=== PATIENT | male | born 1980 | race Caucasian/White ===

== ENCOUNTER → 2023-02-17 10:28 | Outpatient (BNVA) | payer SELFPAY | PROVIDERS: Family Provider Family Medicine; PCP Family Medicine; Visit Provider Family Medicine | DX: I82.401 Acute embolism and thrombosis of unspecified deep veins of right lower extremity (principal) | CPT/HCPCS: 81241; 85210; 85246 ==

== ENCOUNTER 2023-08-10 12:00 | Outpatient (CLI) | payer SELFPAY | END 2023-08-10 12:01 | disposition home or self-care (01) | LOC: SLEEP 08-11 11:34 | PROVIDERS: PCP Family Medicine; Visit Provider Family Medicine | DX: G47.33 Obstructive sleep apnea (adult) (pediatric) (principal) | CPT/HCPCS: G0399 ==

== ENCOUNTER 2025-06-25 22:29 | Emergency (ER) | payer SELFPAY ==
--- OUTSIDE RECORDS SUMMARY | 2025-06-25 22:33 | XMS_ITS | Data Portability ---
Author Organization MARYURI Richie Mckeon [facility], [facility], [facility] Address [address] [place] [address] Assessment No assessment recorded. Plan of Treatment Reminders Order Date Submit Date Provider Last Modified By Organization Details Last Modified Time Details Appointments None recorded. Lab None recorded. Referral None recorded. Procedures None recorded. Surgeries None recorded. Imaging CT, chest, w/ contrast 2024 025 [facility] [address], [address], 12:45:26 Medication Orders atorvastati n 10 mg tablet 2024 025 [place] [id number], [address], [place], [place], [id number], 15:06:24 atorvastati n 20 mg tablet 2023 025 [place] [id number], [address], [place], [place], [id number], 14:16:27 itraconazol e 100 mg capsule 2023 025 [place] [facility] #[id number], [address], [place], [place], [id number], 14:18:25 Patient TargetsNo targets recorded. Patient InstructionsNo instructions recorded. Reason for Referral None Reported. Results Created Date Observation Date Name Description Value Unit Range Abnormal Flag Note LastModifiedBy Organization Detail LastModifiedTime 03/23/20 25 03/23/2025 US, doppl er, venou s No observ ation record ed. [email or web address] Not Available 03/25 09:04:30 03/26/20 25 03/23/2025 US, doppl er, venou s No observ ation record ed. [email or web address] Not Available 03/26 09:35:35 04/06/20 25 05/04/2024 CT, chest , w/wo contr ast No observ ation record ed. [email or web address] [facility] [address] [place], [address], 04/06/2025 16:18:24 05/23/20 25 05/22/2025 US, duple x, venou s, lower extre mity No observ ation record ed. [facility] [address] [place], [address], 05/28/2025 09:52:07 Result Notes None recorded. Problems Name Problem SNOMED Code Status Onset Date Resolution Date Notes Provider Name and Address Organization Details Recorded Time Celluliti s of digit 92887411 Active 2015 ONYCHIA AND PARONYCHI A; Recorded 6 7:33AM by Katie Everett LPN, Office Visit; Promoted; acuity set as *; Not Available [facility] 3 03:08:10 Mixed hyperlipi demia 616915838 Active 2015 MIXED HYPERLIPI DEMIA; Recorded 6 7:33AM by Katie Everett LPN, Office Visit; Promoted; acuity set as *; Eligio Washington MD [address] [place], [address] , [facility] 5 15:05:21 Dysthymia 99634763 Active 2015 MALAISE AND FATIGUE; Recorded 6 7:33AM by Katie Everett LPN, Office Visit; Promoted; acuity set as *; Not Available [facility] 3 03:08:11 Generaliz ed anxiety disorder 43556594 Active 2023 Eligio Washington MD [address] [place] [address], [phone] , [facility] 4 15:45:16 Elevated blood-pre ssure reading without diagnosis of hypertens ion 356818591 Active 2023 Eligio Washington MD [address] [place] [address], [phone] , [facility] 4 15:45:48 Onychomyc osis of toenails 676250428 Active 2023 Eligio Washington MD [address] [place] [address], [phone] , [facility] 4 15:56:24 Muscle spasm of cervical muscle of neck 99664774863 4 Active 2024 Eligio Washington MD [address] [place] [address], [phone] , [facility] 5 14:51:05 Recurrent deep vein thrombosi s 780018169 Active 2024 Eligio Washington MD [address] [place] [address], [phone] , [facility] 5 14:52:33 Problem Notes None recorded. Procedures Surgical History Date Name Laterality Status Provider Name and Address Organization Details Recorded Time 08/16/19 20 Cholecystectomy completed SARKIS GUTIERRES [facility] 06/13/2024 15:05:03 Imaging Results None recorded. Procedure Notes None recorded. Medical Equipment None Reported. Allergies No known drug allergies Medications Name Sig Start Date Stop Date Status Note LastModified by Organization Details LastModified Time atorvastati n 20 mg tablet Take 1 tablet every day by oral route for 90 days. 03/27 completed Not Available Not Available Not Available ketoconazol e 2 % shampoo active Not Available Not Available Not Available atorvastati n 10 mg tablet TAKE 1 TABLET BY MOUTH EVERY DAY active Not Available Not Available No t Available fluconazole 150 mg tablet TAKE 1 TABLET BY MOUTH 1 TIME FOR 1 DAY 06/13 completed Not Available Not Available Not Available hydroxyzine HCl 25 mg tablet Take 1 tablet 3 times a day by oral route as needed for 30 days. 2024 active Not Available Not Available Not Avai lable itraconazol e 100 mg capsule TAKE 2 CAPSULES BY MOUTH DAILY FOR 84 DAYS 03/27 completed Not Available Not Available Not Available Tums 200 mg (as calcium carbonate 500 mg) chewable tablet Take 1 tablet as needed by oral route. active Not Available Not Available No t Available Eliquis 5 mg tablet Take 1 tablet twice a day by oral route for 90 days. 2024 active Not Available Not Available Not Avai lable Eliquis 10mg BID active Not Available Not Marla ilable Not Available aspirin 81 mg capsule Take 1 capsule every day by oral route. 03/27 completed Not Available Not Available Not Available Vitals Date Recorded Body height Body mass index (BMI) Body weight Heart rate Systolic And Diastolic Provider Name and Address Organization Details Last Updated DateTime 03/27/2025 187.96 cm 29.5 kg/m2 734403.2 5 g 72 /min 130/100 mm[Hg] SARKIS GUTIERRES [facility] 14:15:03 Date Recorded Body height Body mass index (BMI) Body weight Heart rate Systolic And Diastolic Provider Name and Address Organization Details Last Updated DateTime 06/13/2024 187.96 cm 29.5 kg/m2 846455.2 5 g 72 /min 140/99 mm[Hg] SARKIS GUTIERRES [facility] 15:02:41 Social History Question Answer Notes LastModified by Organizat ion Details LastModified Time Tobacco Smoking Status Never Smoker [facility] 06/13/2024 15:04:50 What Was The Date Of Your Most Recent Tobacco Screening? 03/27/2025 Information not available 03/27/2025 Sex: Unknown Functional Status Question Answer Note LastModified by Organizat ion Details LastModified Time What is your level of alcohol consumption? Occasional Information not available 06/13/2024 Mental Status None recorded. Family History Relationship Description Onset Age of this Age Resolved Age Notes LastModified by Organization Details LastModified Time Mother Coronary arterioscler osis [email or web address] Not available 06/13 14:55:42 Notes:In stable health: Moth er, Father Stomach Cancer; Maternal Grandfather, Diabetes ; Mother, Hypertension, Stroke; Maternal Grandfather, Aneurysm; Maternal Grandfather Medical History No medical history recorded. Past Encounters Encounter ID Performer Location Encounter Start Date Encounter Closed Date Diagnosis/Indication Diagnosis SNOMED-CT Code Diagnosis ICD10 Code Diagnosis IMO Codes Diagnosis Note [id number] Eligio Washington MD [facility]) [address] [place] [phone] 06/13/2024 14:46:20 06/14/2024 16:55:13 Mixed hyperlipidemia 424482562 E78.2 Generalize d anxiety disorder 99424533 F41.1 History of deep vein thrombosis 712233263 Z86.718 Elevated blood-pressure reading without diagnosis of hypertension 474473252 R03.0 Onychomyco sis of toenails 140905625 B35.1 [id number] Eligio Washington MD [facility]) [address] [place] [phone] 03/27/2025 13:56:02 03/27/2025 15:36:17 Muscle spasm of cervical muscle of neck 0248029770 04 M62.584 7099970 Recurrent deep vein thrombosis 286125407 I82.409 19616017 The last one was superficia l. Will be continuing Eliquis until further notice. History of respiratory disease 287769597 Z87.898 865503 Mixed hyperlipidemia 267 951622 E78.2 00104 [id number] Eligio Washington MD [facility]) [address] [place] [phone] 05/22/2025 13:09:36 05/23/2025 11:29:19 Health Concerns Section Related Observation LastModified by Organization Detai ls LastModified Time None Recorded Concern Status LastModified by Organization Details LastModified Time None Recorded Advance Directives Directive None Recorded Payers Insurance Date Sequence Insurance Name Policy Number Policy Guzmán Covered Member ID Guzmán Member ID Guarantor Name 06/13/2024 1 *SELF PAY* Kristina Elise Notes Date Note Type Note Provider Name and Address Organization Details Recorded Time 06/13/2024 text/html He had a DVT in February, after a long drive. Testing for underlying coagulopathy was negative. Eligio Washington MD [address] [place] [address], [phone], [facility] 06/13/2024 16:02:02
[2025-06-25 22:36] VITALS: BP 142/100; PULSE 64; RESP 16; TEMP 36.7; O2SAT 98; BMI 29.5
--- NOTE | 2025-06-25 22:43 | CTR_ITS ---
PROCEDURE INFORMATION: Exam: CT Head Without Contrast Exam date and time: 06/25/2025 10:47 PM Age: 44 years old Clinical indication: Pain; Headache; Additional info: Headache, wants scan TECHNIQUE: Imaging protocol: Computed tomography of the head without contrast. Radiation optimization: All CT scans at this facility use at least one of these dose optimization techniques: automated exposure control; mA and/or kV adjustment per patient size (includes targeted exams where dose is matched to clinical indication); or iterative reconstruction. COMPARISON: No relevant prior studies available. RADIATION DOSE METRICS: Total DLP (mGy-cm): 1134.78 FINDINGS: Brain: No acute intracranial hemorrhage. No midline shift or mass effect. No acute territorial infarct. Global age-related cerebral atrophy. 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 Cerebral ventricles: No ventriculomegaly. Paranasal sinuses: Visualized sinuses are unremarkable. No fluid levels. Mastoid air cells: Visualized mastoid air cells are well aerated. Bones: Unremarkable. No acute fracture. Soft tissues: Unremarkable. CT/CT head wo con* [id number] IMPRESSION: No acute intracranial hemorrhage. No midline shift or mass effect.
--- NOTE | 2025-06-25 23:08 | ED_ITS ---
HPI - Headache General: Chief Complaint: Headache Stated Complaint: Dull headache, back and neck pain Time Seen by Provider: 06/25/25 22:32 Source: patient Mode of arrival: ambulatory Limitations: no limitations History of Present Illness: Patient is a 44-year-old male with history of DVT presenting to the emergency department complaining of a headache for the past few days. Started gradually, he states he was concerned as he was having some posterior neck pain as well but he states that he thought this was just a tension headache as he has been driving back and forth from here in [place]. He notes that tonight you lay down for bed and he felt a whooshing from his head down through his neck which completely resolved his headache. He reports that he is just here to get a CT scan to make sure that he does not have any intracranial bleed due to his history of blood clots. He has no other symptoms to report, asymptomatic at this time. No visual changes, unilateral numbness or weakness, facial droop, difficulty walking, or other symptoms at this time. MD elicited complaint: headache Onset (ago): day(s) Onset description: gradually Severity: mild Quality & Timing: other (resolved) Associated symptoms: Deny chest pain, fever(s), lightheadedness, nausea, rash or vomiting Related Data Previous Rx's ?Medication ?Instructions ?Recorded aspirin 81 mg tablet,delayed 81 mg PO DAILY #30 tabs 1 09/26/22 release (Adult Aspirin Regimen) c-pap 6-16 #1 ea 09/22/23 Allergies Allergy/AdvReac Type Severity Reaction Status Date / Time No Known Allergies Allergy Verified 06/25/25 22:40 Review of Systems General: Reports: 10 or more systems reviewed and unremarkable except in HPI and below Const: Denies: fever(s), chills or fatigue Eyes: Denies: change in vision ENMT: Denies: throat pain, ear or mastoid pain or nasal discharge Card: Denies: chest pain, palpitations, swelling of feet/ankles or lightheadedness Resp: Denies: dyspnea, productive cough or wheezing GI: Denies: abdominal pain, nausea, vomiting, diarrhea or constipation : Denies: flank pain, difficulty urinating, dysuria or urinary frequency Musc: Reports: neck pain; Denies: back pain or joint pain Skin/Breast: Denies: rash Neuro: Reports: headache(s); Denies: numbness in extremities, weakness in extremities, lack of coordination, difficulty walking, dizziness, Slurred speech present, seizure-like activity or involuntary movements PFSH ED PFSH: Medical History Obstructive sleep apnea Deep vein thrombosis (DVT) Physical Exam Const: COMMON NORMALS: no acute distress, patient oriented x3 and no limitations GENERAL APPEARANCE: cooperative, comfortable and well developed ORIENTATION/CONSCIOUSNESS: Yes awake, Yes oriented to person, Yes oriented to place and Yes oriented to time HENMT: COMMON NORMALS: normocephalic, atraumatic and hearing grossly normal bilaterally HEAD & SCALP: normocephalic and atraumatic Eye: COMMON NORMALS: Equal, round and reactive pupils present, EOMs intact bilaterally and conjunctivae normal CONJUNCTIVA: Yes conjunctivae normal PUPIL: Yes Equal, round and reactive pupils present Neck/C-Spine: COMMON NORMALS: full ROM, supple and no JVD Resp: COMMON NORMALS: normal respiratory effort, No retractions, No use of accessory muscles and clear to auscultation bilaterally AUSCULTATION: clear t o auscultation bilaterally Cardio: COMMON NORMALS: no JVD, regular rate, regular rhythm, No clicks present (Cardio), No murmurs present (Cardio) and No rub (Cardio) RATE: regular rate RHYTHM: regular rhythm Extremity: COMMON NORMALS: normal to inspection, full ROM and capillary refill normal Neuro: COMMON NORMALS: patient oriented x3, CN's II-XII intact bilaterally, moves all extremities, no focal motor deficits and no sensory deficits noted SENSORIUM/ORIENTATION: Yes oriented to person, Yes oriented to place and Yes oriented to time COORDINATION/BALANCE: [id number] test normal and [id number] test normal GAIT: Yes Normal gait present MOTOR EXAM: 5/5 motor strength present throughout, Pronator motor function not present, no tremor noted, no asterixis, Motor fasciculations not present and Normal motor muscle tone present throughout COORDINATION: [id number]-gy-[id number] test normal and sggo-mx-mvmz test normal Psych: COMMON NORMALS: mental status grossly normal and Normal thought process present THOUGHT PROCESS: Normal thought process present Skin: COMMON NORMALS: no rashes or lesions noted GENERAL SKIN EXAM: no rashes or lesions noted Course Vital Signs: Vital signs: Vital Signs Temperature 98.1 F 06/25/25 22:36 Pulse Rate 64 06/25/25 22:36 Respiratory Rate 16 06/25/25 22:36 Blood Pressure 142/100 06/25/25 22:36 Pulse Oximetry 98 06/25/25 22:36 Oxygen Delivery Me thod Room Air 06/25/25 22:36 MDM - Headache Medical Decision Making Patient presenting with headache, he was concerned with him being anticoagulated and wanted a CT scan to rule out any issues. Neurological exam was completely unremarkable, he was actually symptom-free at time of examination. Head CT was negative, he is allowed discharge home as I do not suspect that this is any acute cerebral or vascular abnormality. Lab Data Radiology Impressions Head CT 06/25/25 22:43 IMPRESSION: No acute intracranial hemorrhage. No midline shift or mass effect. All radiology interpretation(s) finalized by discharge Discharge Plan Discharge Patient Disposition: Home Clinical Impression: Headache Condition: Stable Prescriptions: No Action aspirin [Adult Aspirin Regimen] 81 mg tablet,delayed release (DR/EC) 81 mg PO DAILY Qty: 30 0RF (DME) c-pap 6-16 See Rx Instructions .Route .MEDSUPPLY Qty: 1 0RF Rx Instructions: As directed, supplies, mask and equipment Discharge Orders: Discharge ED (Routine); Ordered 06/25/25 Ordered By: Michi Vidal Referrals: Eligio Washington MD [Primary Care Provider, [facility]] Patient Instructions: Patient Portal & Eduardo Instructions Activity Restrictions/Additional Instructions: Head CT today showing no acute hemorrhage, midline shift, or mass. Your neurological exam was completely normal. Continue taking home medications. Follow-up with primary care as needed. Return with any worse. Print Language: Grenadian Coding Level of Care Code ED [employer] Counter Person for Sully Wadsworth
[2025-06-25 23:11] VITALS: BP 125/84; PULSE 64; RESP 16; O2SAT 95
== END 2025-06-25 23:11 | disposition home or self-care (01) ==
PROVIDERS: Emergency Provider Physician Assistant; PCP Family Medicine
DX: R51.9 Headache, unspecified (principal); Z79.82 Long term (current) use of aspirin
CPT/HCPCS: 70450; 99284